=== PATIENT | male | born 1975 | race Hispanic/Latino ===

== ENCOUNTER 2018-04-14 12:40 | Emergency (ER) | payer BC, OTHER ==
[2018-04-14] MEDS ORDERED: ACETAMINOPHEN EXTRA STRENGTH 500 MG TABLET ONE (13:58)
[2018-04-14 14:22] LABS: RAPID GROUP A STREP POSITIVE (NEGATIVE)
[2018-04-14] MEDS ORDERED: KETOROLAC TROMETHAMINE 60 MG/2 ML VIAL ONE (14:49)
[2018-04-14] MEDS ORDERED: CEFTRIAXONE SODIUM 1 GM ONE (14:49)
[2018-04-14] MEDS ORDERED: LIDOCAINE HCL-MPF 1% 2ML VIAL ONE (14:49)
== END 2018-04-14 15:18 | disposition home or self-care (01) ==
LOC: EDH 12:40
DX: J02.0 Streptococcal pharyngitis (principal)
CPT/HCPCS: 71046; 87804 ×2; 87880; 94640; 96372 ×2; 99284; J0696; J1885; J3490

== ENCOUNTER 2019-04-21 16:37 | Emergency (ER) | payer OTHER, SELFPAY ==
[2019-04-21] MEDS ORDERED: ACETAMINOPHEN EXTRA STRENGTH 500 MG TABLET ONE (16:53)
== END 2019-04-21 18:38 | disposition home or self-care (01) ==
LOC: EDH 16:37
DX: J11.1 Influenza due to unidentified influenza virus with other respiratory manifestations (principal)

== ENCOUNTER 2022-05-11 17:10 | Emergency (ER) | payer OTHER, BC ==
[~2022-05-11] VITALS: Ht 167.6 cm; Wt 106.6 kg
[~2022-05-11 17:10] MED LIST: ALBUHFA IH; D-ME118S56 PO; LEVO750T68 PO
[2022-05-11 17:11] VITALS: BP 144/84
[2022-05-11] MEDS ORDERED: KETOROLAC 30MG VIAL (30MG/ML) ONE (20:50)
[2022-05-11] MEDS ORDERED: KETOROLAC 30MG VIAL (30MG/ML) IM ONE (21:00)
== END 2022-05-11 21:43 | disposition home or self-care (01) ==
LOC: EDH 17:10
DX: M79.89 Other specified soft tissue disorders (principal); Z79.1 Long term (current) use of non-steroidal anti-inflammatories (NSAID)
CPT/HCPCS: 99283; 73630; 96372; J1885

== ENCOUNTER 2023-01-11 19:31 | Emergency (ER) | payer BC, OTHER ==
[~2023-01-11] VITALS: Ht 167.6 cm; Wt 105.2 kg
[2023-01-11 19:34] VITALS: BP 141/101; PULSE 80; RESP 20
[2023-01-11] MEDS ORDERED: AMOX/CLAV 875/125MG TAB PO ONE (20:00)
[2023-01-11] MEDS ORDERED: HYDROCODONE/ACETAMINOPHEN 5/325 MG TAB PO ONE (20:00)
[2023-01-11] MEDS ORDERED: ACET-2079 PO (20:14)
[2023-01-11] MEDS ORDERED: AMOX-426 PO (20:14)
[2023-01-11] MEDS ORDERED: CIPR7.5D7 OT (20:14)
== END 2023-01-11 20:25 | disposition home or self-care (01) ==
LOC: EDH 19:31
DX: H66.92 Otitis media, unspecified, left ear (principal); I88.9 Nonspecific lymphadenitis, unspecified; E11.9 Type 2 diabetes mellitus without complications; E78.00 Pure hypercholesterolemia, unspecified; Z79.899 Other long term (current) drug therapy; Z98.890 Other specified postprocedural states